=== PATIENT | female | born 1980 | race Caucasian/White ===

== ENCOUNTER 2016-04-03 02:46 | Inpatient (IN) | payer OTHER ==
[~2016-04-03] VITALS: Ht 167.6 cm; Wt 115.6 kg
[2016-04-03] VITALS (10 sets, daily range): BP systolic 118–139; BP diastolic 58–88; PULSE 66–103; RESP 14–25; O2SAT 87–100
[~2016-04-03 02:46] MED LIST: ASPI-973 PO; METH10TA4 PO; PROP10TA8 PO
--- NOTE | 2016-04-03 03:18 | ED.REPORT ---
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 The patient states that she awoke from sleep with the sensation of burning in her chest, like she needed a Jyothi. She reports associated radiation of her pain down both of her arms and up to her neck, with nausea, vomiting 1x, and shortness of breath. Patient admits to being anxious on arrival to the ED but denies diaphoresis. When her symptoms continued, the patient took an 81mg aspirin. Nursing Notes Stated Complaint: UPPER ABDOMINAL PAIN Chief Complaint: Female Abdominal Pain Nursing Notes Reviewed: Yes Allergies: Coded Allergies: amoxicillin (Verified Allergy, Unknown, 04/03/16) Scheduled Aspirin (Aspirin) 81 Mg Tablet 81 MG PO DAILY Methimazole (Methimazole) 10 Mg Tablet 30 MG PO DAILY Propranolol HCl (Propranolol HCl) 10 Mg Tablet 10 MG PO TID General Time Seen by MD: 03:10 Chief Complaint Chest pain Hx Obtained From: Patient Arrived By: Walk-in Sudden in Onset?: No Onset Occurred: 1 - 4 hours ago (1:30am) Symptom Duration: Since onset Location: : Abdomen: Chest Quality: Painful Radiation: : Arm left: Arm right Severity: Current: Moderate Severity: Maximum: Moderate Recent Healthcare: No recent doctor visit, No recent hospitalization Similar Sx Previous: No Past Medical History Past Medical History 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 Physical Exam Vital Signs Vital Signs Date Time Temp Pulse Resp B/P Pulse Ox O2 Delivery O2 Flow Rate FiO2 04/03/16 02:53 36.4 77 18 139/88 99 Room Air Initial VS: Reviewed Skin: Warm, Dry, No cyanosis Neurologic: Alert, Oriented, Nonfocal Psychiatric: Mood/affect normal, Behavior normal, Normal thought content General/Constitutional: Awake, Alert Behavior: Positive: Anxious Appearance / Presentation: Positive: Obese Head / Eyes: Atraumatic, Normocephalic, PERRL ENT: Airway patent, Mucous membranes moist Neck: Supple, Full range of motion Respiratory / Chest: Breath sounds NL, Breath sounds = bilat, No respiratory distress, No rales, No rhonchi, No wheezing Cardiovascular: Heart rate NL, Regular rhythm, No gallop, No murmurs, No rubs Abdomen: Soft, Non-tender, No guarding, No rebound Upper Extremities Upper Extremity / MS: No swelling, No edema Lower Extremity / Pelvis / MS: No swelling, No edema Interpretation & Diagnostics Lab Results Interpretation Result Diagram: 04/03/16 0329 04/03/16 0329 Test 04/03/16 03:29 White Blood Count 7.4th/mm3 (3.8-10.1) Red Blood Count 4.49mil/mm3 (3.90-5.20) Hemoglobin 13.4g/dL (12.0-15.6) Hematocrit 39.0% (35.0-46.0) Mean Corpuscular Volume 86.9fL (81-100) Mean Corpuscular Hemoglobin 29.8pg (27.0-35.0) Mean Corpuscular Hemoglobin Concent 34.4% (32.0-37.0) Red Cell Distribution Width 13.5% (12.3-15.4) Platelet Count 314bil/L (150-400) Neutrophils (%) (Auto) 55.4% (40-74) Lymphocytes (%) (Auto) 35.4% (14-46) Monocytes (%) (Auto) 9.0% (4-12) Eosinophils (%) (Auto) 0% (0-5) Basophils (%) (Auto) 0.1% (0-3) Prothrombin Time 9.7sec (8.1-12.5) Prothromb Time International Ratio 0.91ratio Activated Partial Thromboplast Time 25.6sec (22.8-33.0) D-Dimer < 0.5mg/L (<0.50) Sodium Level 141mEq/L (134-144) Potassium Level 3.6mEq/L (3.5-5.2) Chloride Level 105mEq/L (97-108) Carbon Dioxide Level 22mmol/L (18-29) Blood Urea Nitrogen 21mg/dL (6-20) Creatinine 0.70mg/dL (0.57-1.00) Estimat Glomerular Filtration Rate 134mL/min (>59) Glucose Level 133mg/dL (60-99) Calcium Level 9.3mg/dL (8.5-10.1) Magnesium Level 2.1mg/dL (1.6-2.6) Total Bilirubin 0.2mg/dL (0.0-1.2) Aspartate Amino Transf (AST/SGOT) 20U/L (0-50) Alanine Aminotransferase (ALT/SGPT) 31U/L (0-32) Alkaline Phosphatase 87U/L (25-150) Total Creatine Kinase 83U/L (21-215) Creatine Kinase MB 2.1ng/mL (0.0-5.3) Creatine Kinase MB % % (0.0-5.0) Troponin T 0.010ug/L (0.0-0.011) Total Protein 7.2g/dL (6.4-8.4) Albumin 4.3g/dL (3.4-5.0) Hold Vu Top Tube Received (Received) ECG Interpretation ECG Interpretation: Sinus rhythm, Rate 74 Incompleted RBBB Acute inferior GA changed from prior on 01/19/2016 Time: 03:13 Interpreted by: ED physician X-Ray Chest Interpretation Chest Xray Interpretation: Impression: No acute cardiopulmonary process. View: Portable Interpretation / Wet Read by: Wet read ED physician Re-Eval/Medical Decision Med Decision/Clinical Course 36-year-old prior stroke presents with upper epigastric lower chest pain radiating to her arms. Initial EKG shows an inferior wall GA, and caffeine was consulted immediately. Dr. Valle was here promptly to take her to the [facility] and she is transported now in critical condition. Source of Hx: Old records Time of Eval: 03:27 Re-Evaluation/Progress Note: Patient was informed that she is having an acute GA. She will need to go to the technical laboratory asst tonight and the manager med surg is on his way. Patient understands and agrees with this plan. All questions were addressed. Consultation : Referral / Consult Name: Kenna Duran MD Consulted With: Cardiology Call Returned at: 03:25 Pct: Will see patient, Agrees with eval, Agrees with plan, Requested technical laboratory asst Note: Spoke with Dr. Adam, cardiology, about the patient's EKG. He states to call the technical laboratory asst. Counseled Regarding: Diagnosis, Lab results, Need for admission Discharge & Departure Primary Impression: STEMI (ST elevation myocardial infarction) Involved coronary artery: unspecified coronary artery Qualified Code: I21.3 - ST elevation (STEMI) myocardial infarction of unspecified site Disposition: ADMITTED TO HOSPITAL Discharge Condition All VS Reviewed: Yes Condition: Critical Crit Care Except Billable Proc Time Spent: 30-74 minutes (thirty minutes) Services Performed: Patient management by me, Time spent at bedside, Reviewing test results, Reviewing imaging, Discussing patient care, Documentation in record, Time with fam/surrogate Scribe Attestation Portions of this note were transcribed by Margaret Ruiz. I, Dr. Delatorre personally performed the history, physical exam and medical decision-making; I reviewed and confirmed the accuracy of the information in the transcribed note. Signed by: Mark Sow, 04/03/2016 0426 Garfield Delatorre MD Apr 03, 2016 03:18 Margaret Ruiz Apr 03, 2016 03:34
[2016-04-03] MEDS ORDERED: Ondansetron 2 mg/mL 2 mL Inj ONE ×2 (03:30→04:09)
[2016-04-03] MEDS ORDERED: Heparin 5,000 Unit/mL Inj ONE (03:31)
[2016-04-03] MEDS ORDERED: Nitroglycerin 50,000 mcg/250 mL D5W Premix IV ONE ×2 (03:31→03:46)
[2016-04-03 03:43] LABS: BASOPHILS % (AUTO) 0.1 % (0-3); EOSINOPHILS % (AUTO) 0 % (0-5); Mean Corpuscular Hemoglobin 29.8 pg (27.0-35.0); Mean Corpuscular Volume 86.9 fL (81-100); NEUTROPHILS % (AUTO) 55.4 % (40-74); Platelet Count 314 bil/L (150-400)
[2016-04-03] MEDS ORDERED: 0.9% Sodium Chloride 1,000 ML ONE (03:46)
[2016-04-03] MEDS ORDERED: Heparin 1,000 Unit/mL 10 mL Inj ONE (03:46)
[2016-04-03] MEDS ORDERED: Heparin 1,000 Units/500 mL NS Premix IV ONE (03:46)
[2016-04-03] MEDS ORDERED: Heparin 5,000 Units/500 mL NS Premix IV ONE (03:46)
[2016-04-03] MEDS ORDERED: Heparin 25,000 Unit/500 mL 0.45% NS Premix IV ONE (03:54)
[2016-04-03] MEDS ORDERED: Ondansetron 8 mg ODT Tablet PO ONE (03:55)
[2016-04-03 03:57] LABS: INR 0.91 ratio
[2016-04-03] MEDS ORDERED: fentaNYL-PF 50 mCg/mL 2 mL Inj ONE ×4 (04:08→05:23)
[2016-04-03 04:11] LABS: TROPONIN T 0.01 ug/L (0.0-0.011)
--- NOTE | 2016-04-03 04:53 | HP ---
[address] [address] HISTORY AND PHYSICAL PATIENT: STEVE HERNANDEZ : 1980 MR#: [id number] ADMIT: 04/03/2016 JOB ID: [id number] CORRECTED REPORT DATE OF ADMISSION: 04/03/2016 CHIEF COMPLAINT: Chest discomfort. HISTORY: The patient is a 36 years old lady with history of obesity and prior smoking. She was in her usual state of health until tonight when she woke up with chest discomfort around 1:30 a.m. She described as heartburn that radiated to her upper neck and her left arm. She rated about 7/10. She initially thought that it was from her pancreas since she has history of pancreatitis in the past. The patient arrived in the emergency department at 2:45 a.m. EKG at 3:[address]-segment elevation. STEMI protocol was activated. PAST MEDICAL HISTORY: 1. History of cerebrovascular accident in January 2016 with expressive aphasia, right upper extremity weakness and facial drop, treated with tPA. 2. Graves disease. 3. Preeclampsia. 4. Hypertension. 5. Pancreatitis, thought to be due to gallstone. PAST SURGICAL HISTORY: 1. Cholecystectomy. 2. Right knee meniscus repair. 3. Tonsillectomy. CURRENT MEDICATIONS: 1. Aspirin 81 mg daily. 2. Metoprolol succinate 12.5 mg daily. 3. She stopped taking methimazole 1 week ago. ALLERGIES: AMOXICILLIN causes rash. SOCIAL HISTORY: She quit smoking two years ago. She used to smoke off and on for 17 years. She denies alcohol. No drugs. FAMILY HISTORY: Her mother is adopted. Father has hypertension. REVIEW OF SYSTEMS: Unobtainable due to urgency of clinical situation. PHYSICAL EXAMINATION: Reveals an anxious, obese lady appearing in no acute distress. Temperature is 36.1. Blood pressure is 110/46. Pulse 93. Skin is warm and dry. Head and face have normal configuration. Anicteric sclerae. Moist mucosa. Neck supple. No jugular venous distention or carotid bruits. Chest: Normal expansion. Lungs are clear to auscultation. Heart: The first and second heart sounds normal. No gallop or murmur. Abdomen: Obese, nontender and without hepatosplenomegaly. Back: No CVA tenderness. Extremities: No clubbing, cyanosis or edema. Neurologic: Grossly intact. IMPRESSION: 1. Acute inferoposterior myocardial infarction. 2. History of cerebrovascular accident, treated with tPA in January 2016. 3. Hypertension. 4. Graves disease. 5. Obesity. 6. History of smoking. PLAN: The patient will undergo emergent coronary angiogram and possible percutaneous coronary intervention. The risks and benefits of procedure have been explained to the patient. She understands and agrees to proceed with the procedure. Corrected by KEYUR 06/28/2016 at 8:21am DOS. LANDEROS
[2016-04-03] MEDS ORDERED: Protamine Sulfate 10 mg/mL 5 mL Inj ONE (05:14)
[2016-04-03] MEDS ORDERED: 0.9% Sodium Chloride 1,000 ML IV SCH (05:57)
[2016-04-03] MEDS ORDERED: Alum-Mag Hydrox-Simeth 30 mL Suspension PO PRN (06:00)
[2016-04-03] MEDS ORDERED: Ondansetron 2 mg/mL 2 mL Inj IVPUSH PRN (06:00)
[2016-04-03] MEDS ORDERED: Polyethylene Glycol (PEG) 17 Gm Powder PO PRN (06:00)
--- NOTE | 2016-04-03 06:52 | NUR ---
laboratory animal facility supervisor to ccu room 2019, pt received from laboratory animal facility supervisor to ccu room 2020 at 0610, tele- sr, pt denies cp, hr 70's, bp stable, afebrile, pt denies n/v denies sob, pedal pulses present, right groin with large hematoma that developed post cath in laboratory animal facility supervisor, outlined, no changes noted, no bleeding from cath site, post cath checks done per protocol and noted on post cath flow sheet, pt c/o needing to void, attempted to place f/c, unable per 2 rns, pt states she will wait to void, reported to day shift rn, pt teary eyed and appears overwhelmed with this morning's events, see post cath flow sheet and ht/wt/vs charting, ivf infusing per orders, report to day shift rn--aware that admit and orders need to be done,
[2016-04-03 07:48] LABS: Creatine Kinase 83 U/L (21-215)
--- NOTE | 2016-04-03 08:54 | DRSVH ---
PROCEDURE: X-RAY CHEST ONE VIEW, PORTABLE ([id number]) INDICATIONS: STEMI, ABDOMINAL PAIN TECHNIQUE: One view of the chest was acquired. COMPARISON: None. FINDINGS: Surgical changes and devices: None. Lungs and pleura: No pleural effusions or pneumothorax. Lungs are clear. Mediastinum: Mediastinal contours appear normal. Heart size is normal. Bones and chest wall: No suspicious bony lesions. Overlying soft tissues appear unremarkable. IMPRESSION: No acute cardiopulmonary disease. Dictated by: Georges FLORES Interpreted: Valente Montano MD on 04/03/2016 at 8:53 Transcribed by: MARY on 04/03/2016 at 8:53 Approved by: Andi Montano M.D. on 04/03/2016 at 9:28
--- NOTE | 2016-04-03 09:54 | CS94 ---
[address] [address] DIAGNOSTIC CARDIAC CATHETERIZATION PATIENT: STEVE HERNANDEZ : 1980 MR#: [id number] ADMIT: 04/03/2016 JOB ID: [id number] SERVICE DATE: 04/03/2016 PATIENT PROFILE: The patient is a 36 years old woman with a history of stroke last year. She presented with acute inferoposterior myocardial infarction. PROCEDURE: 1. Retrograde left heart catheterization. 2. Selective coronary angiography. 3. Left ventricular angiogram. 4. Intravascular ultrasound of the proximal right coronary artery. VASCULAR CLOSURE DEVICE: None. COMPLICATIONS: Moderate-sized right groin hematoma. METHOD: Retrograde left heart catheterization was performed from the right groin under 1% lidocaine local anesthesia using a 6-[place] sheath. Selective coronary angiogram was performed in multiple projections, including cranial and caudal angulations with hand injected contrast via JL-4 and 3DRC catheters. There appears to be ostial right coronary artery lesion. The catheter was then changed to a 4-[place] IM catheter. However, the ostium right coronary artery lesion still persists. Heparin 8,000 units were given. A 6-[place] 3DRC guide was advanced to the right coronary ostium. A Runthrough wire was placed inside the right coronary artery. Nitroglycerin 200 mcg was given intracoronary. The guide was backed out of the coronary ostium. An angiogram was performed and it showed improvement of the right coronary artery lesion. An [place] IVUS catheter was then performed in the right proximal coronary artery lesion. The procedure was terminated. A 6-[place] angulated pigtail catheter was advanced to the left ventricle and left ventricular angiogram was performed in the 30 degree GUTIERREZ view by injecting contrast at the rate of 12 cc/second for 3 seconds. This catheter was withdrawn. Right femoral angiogram was performed. Following sheath removal, an attempt to deploy an Angio-Seal closure device was unsuccessful. The patient developed a moderate-sized right groin hematoma. She was transferred to intensive care unit in stable condition. TOTAL CONTRAST USED: 160 cc. FLUOROSCOPY TIME: 8.9 minutes. RESULTS: 1. Selective coronary angiography: a. Left main coronary artery is normal. b. The left anterior descending artery does not reach the apex and has minimal 10% stenosis. c. The circumflex artery is large and normal. The major obtuse marginal branch reaches the apex and appears normal. d. The large and dominant right coronary artery is normal. There is catheter-induced spasm at the right coronary ostium. 2. An intravascular ultrasound of the proximal right coronary artery showed there is minimal atherosclerotic plaque with diameter of 4.2 x 4.6 mm and cross-sectional area of 16.2 mm2. 3. Left ventricular angiogram demonstrates normal left ventricular systolic function (visually estimated ejection fraction 65%). There is no wall motion abnormality. There is no mitral regurgitation. 4. There is no gradient across the aortic valve on catheter withdrawal. 5. Aortic pressure is 162/91 mmHg. Left ventricular pressure is 168/7 mmHg. 6. Left ventricular end-diastolic pressure is 26 mmHg. CONCLUSION: 1. Minimal coronary artery disease. 2. Normal left ventricular systolic function. 3. LVEDP is [address]-segment change is due to coronary artery spasm. MTDD
[2016-04-03 13:46] LABS: Magnesium 1.8 mg/dL (1.6-2.6)
[2016-04-03 13:50] LABS: TROPONIN T 0.857 ug/L (0.0-0.011)
[2016-04-03] MEDS ORDERED: METO25TA99 PO (15:37)
--- NOTE | 2016-04-03 16:44 | NUR ---
R Groin Hematoma/Activity: P: R groin pain 7/10 r/t hematoma post heart cath I: Tylenol 650mg PO administered. E: pt reported 7/10 pain on tylenol reassessment this morning. MD was notified. Ordered Morphine 2mg IV Q2 hours PRN for pain. Morphine 2mg IVP was administered and pt reported 4/10 pain on reassessment. R groin site is unchanged from this morning, mod amounts of bruising noted, site is tender to touch. Pressure dressing is C/D/I. Dorsalis pedis pulses palpable. VSS. Dr Welch assessed site at 1600 and stated pt is able to be off bedrest. Pt is current tolerating sitting up in chair without report of CP, SOB, palpitations.
[2016-04-03 19:33] LABS: TROPONIN T 1.16 ug/L (0.0-0.011)
[2016-04-03] MEDS: HYDROcodone-APAP 5-325 mg Tablet PO PRN (21:38)
--- NOTE | 2016-04-04 00:26 | NUR ---
transfer: received transfer patient at 0010, pt. c/o back pain, she received one norco 2 hrs ago, pt. has large hematoma right groin site, extending into groin area.
[2016-04-04 04:56] VITALS: BP 104/68; PULSE 67; RESP 16; O2SAT 98
[2016-04-04 07:28] LABS: BASOPHILS % (AUTO) 0.1 % (0-3); EOSINOPHILS % (AUTO) 0 % (0-5); MONOCYTES % (AUTO) 5.9 % (4-12); Mean Corpuscular Hemoglobin 29.7 pg (27.0-35.0); Mean Corpuscular Volume 88.2 fL (81-100); NEUTROPHILS % (AUTO) 64.9 % (40-74); Platelet Count 285 bil/L (150-400)
[2016-04-04] MEDS: HYDROcodone-APAP 5-325 mg Tablet PO PRN ×3 (07:44→16:05)
[2016-04-04 08:00] VITALS: BP 111/76; PULSE 70; RESP 20; O2SAT 97
--- NOTE | 2016-04-04 08:45 | NUR ---
Social Work: Screening Data: Pt is a 36 y/o female admitted for stemi. Pt's PCP is Dr Gilliam, pt's insurance is [employer]. Readmit score is 3. EMR reviewed. No d/c planning needs anticipated at this time. [facility] will continue to follow if needs arise. Assessment: Pt who is independent at baseline. Plan: Pt will d/c home via POV when medically stable. No d/c planning needs anticipated at this time. [facility] will continue to follow if needs arise. AFIA Trejo
--- NOTE | 2016-04-04 11:41 | DIS ---
[address] [address] DISCHARGE SUMMARY PATIENT: STEVE HERNANDEZ : 1980 MR#: [id number] ADMIT: 04/03/2016 JOB ID: [id number] DIS: 04/04/2016 CORRECTED REPORT: ADMITTING DIAGNOSIS: Acute inferoposterior myocardial infarction. DISCHARGE DIAGNOSES: 1. Acute inferoposterior myocardial infarction. 2. Coronary spasm. SECONDARY DIAGNOSES: 1. History of cerebrovascular accident, treated with tPA in January 2016. 2. Hypertension. 3. Hypercholesterolemia. 4. Morbid obesity with a body mass index of 41.1 kg/m2. 5. Prediabetes. 6. Possible obstructive sleep apnea. 7. Graves disease. 8. History of smoking. PROCEDURE: 1. Retrograde left heart catheterization. 2. Selective coronary angiography. 3. Left ventricular angiogram. 4. Intravascular ultrasound of the proximal right coronary artery. COMPLICATION: Large right groin hematoma. HISTORY: Please see detailed history in the admission H and P. The patient is a 36 years old lady with morbid obesity and prior smoking. She was in her usual state of health until April 03, 2016, when she woke up from sleep with severe heartburn that radiated to her upper neck and her left arm. She rated it about 7/10. EKG showed inferior ST-segment elevation with anterior ST depression. STEMI protocol was activated. The patient underwent emergent coronary angiogram, which demonstrated minimal coronary artery disease. Normal left ventricular systolic function. Left ventricular end-diastolic was 26 mmHg. She had catheter-induced spasm of the ostial right coronary artery, which was reversed with nitroglycerin. Blood tests showed cholesterol 185, triglycerides 99, HDL 56, LDL 109. Hemoglobin A1c 5.7. Her CK peaked at 557, with troponin T peaking at 1.17. She developed a large right groin hematoma after the procedure. The patient was discharged from the hospital on the following day in good condition. She will follow with [facility] in one week to check on her groin. The patient will follow up with Dr. Coleman in three months with BMP and lipid profile. She was referred to see a sleep doctor for further evaluation of obstructive sleep apnea. DISCHARGE MEDICATIONS: 1. Aspirin 81 mg daily. 2. Metoprolol succinate 25 mg daily (dose decreased). 3. Amlodipine 2.5 mg daily (new). 4. Atorvastatin 20 mg (new). 5. Hydrocodone 5/325, 1 tablet q.4-6 h. p.r.n. for 30. Corrected by KEYUR 06/20/16 at 9:24am MTDD
--- NOTE | 2016-04-04 12:00 | NUR ---
C/O shakiness/pain/mov Called to patient room as pt c/o shakiness and elevated HR. Hands with visable, [employer] reports HR 94 (80-110 range). Estelline given for pain at hematoma site. At 1100 pt able to ambulate 2 full loops of MOC. Reported next time up with pain. Will ambulate after lunch again. Addendum: 04/04/16 at 1230 by EDUARDO MELCHOR RN Reports pain in the right shoulder area, posterior. Not new, up to rib cage.
--- NOTE | 2016-04-04 14:43 | DRSVH ---
[facility] [address] [place] [address] Echocardiogram Report Name: STEVE HERNANDEZ MStudy Date: 04/04/2016 Height: 66 in Hospital Exam Location: [facility] Weight: 255 lb Gender: Female BSA: 2. 2 m2 : 1980 Age: 36 yrs BP: 104 /68 mmHg Reason For Study: POST-CATH Ordering Physician: Performed By: Aldo Torres Referring Physician: XENA STARKEY Interpretation Summary The ejection fraction is estimated to be 60-65%. There is no significant valvular heart disease. Procedure: A two-dimensional transthoracic echocardiogram with color flow and Doppler was performed. The study quality was technically adequate. Comparison is made with the echocardiogram of 01/20/16. The patient was in normal sinus rhythm during the exam. Left Ventricle: The left ventricle is normal in size, wall thickness, and systolic function without any focal wall motion abnormalities. The ejection fraction is estimated to be 60-65%. There are no obvious focal wall motion abnormalities noted but poor endocardial definition reduces the sensitivity for the detection of such. Assessment of diastolic parameters indicates normal left ventricular diastolic function and normal filling pressures. Right Ventricle: The right ventricle is normal in size, thickness and function. Atria: The left atrial size is normal. The right atrium grossly appears normal in size. The interatrial septum is intact with no evidence for an atrial septal defect. Mitral Valve: The mitral valve is normal. There is trace mitral regurgitation. Aortic Valve: The aortic valve is normal in structure and function. No aortic regurgitation is present. Tricuspid Valve: The tricuspid valve is normal. Pulmonary artery pressures cannot be estimated because of the lack of a measurable TR jet velocity. Pulmonic Valve: The pulmonic valve is not well seen, but is grossly normal. There is a trace or physiologic amount of pulmonic regurgitation. Great Vessels: The aortic root is normal size. The dimensions of the ascending aorta are normal. The pulmonary artery is normal size. The inferior vena cava appeared normal. Pericardium/ Pleura There is no pericardial effusion. There is no pleural effusion. MMode/2D Measurements & Calculations LVIDd: 4.6 cm RA long axis LVOT diam: 2.1 cm LVIDs: 3.2 cm LA A2 area: 17.8 cm Ao root diam FS: 31.8 % LA A4 area: 16.7 cm RA area EPSS: 0.24 cm LA length (vol) asc Aorta Diam IVSd: 0.96 cm : 11.8 cm LVPWd: 0.85 cm LA vol: 61.5 ml RA vol Ao Arch Diam (Prox LA vol index : 28.6 ml Trans): 2.6 cm RA : 27.8 ml/m2 : 12.9 mm2 LV purdy. diameter/BSA LV sys. diameter/BSA (cm/m^2): 2.1 (cm/m^2): 1.4 Doppler Measurements & Calculations Ao V2 max MV E max shady MV E/A: 1.3 PA V2 max : 154.5 cm/sec : 87.3 cm/sec Med Peak E' Shady : 127.7 cm/sec Ao max P.6 mmHg MV A max shady PA mean PG Ao mean P.1 mmHg : 66.1 cm/sec E/E' med: 9.5 : 3.8 mmHg LVOT Max Shady Lat Peak E' Shady : 103.4 cm/sec GALEN(I,D): 2.4 cm E/E' lat: 7.0 sev ratio: 0.67 E/e' average: 8.3 MV dec time: 0.19 sec Ao V2 mean LV V1 max PG PA V2 mean : 107.1 cm/sec : 93.7 cm/sec Ao V2 VTI: 26.7 cmLV V1 VTI: 17.8 cm PA pr(Accel) : 18.3 mmHg GALEN(V,D): 2.4 cm2 GALEN indexed to BSA (cm^2/m^2): 1.1 Electronically signed by: Brennan Ruiz on Reading Physician:04/04/2016 02:43 PM
--- NOTE | 2016-04-04 14:47 | NUR ---
Paged MD Call placed MD re discharge. Pt concern over growing hematoma and young child at home. Enc placing pillow over area as a splint/guard. MD confirmed ok to discharge.
[2016-04-04 16:07] VITALS: PULSE 98
--- NOTE | 2016-04-04 17:36 | NUR ---
Discharge Reviewed DC instructions with patient and . Answered all questions. All belongings taken Taken out in w/ch to home in private auto to home with family.
[2016-04-05] MEDS ORDERED: PROP10TA8 PO (01:09)
== END 2016-04-04 16:30 | disposition home or self-care (01) | DRG 190 ==
LOC: SED 02:46 → CCU 03:49 → PCC 16:44 → MOC 04-04 00:15
PROVIDERS: ADMIT Internal Medicine Interventional Cardiology; ATTEND Internal Medicine Interventional Cardiology
PROC: 4A023N7 Measurement of Cardiac Sampling and Pressure, Left Heart, Percutaneous Approach (ICD-10-PCS; principal; 2016-04-03)
PROC: B2111ZZ Fluoroscopy of Multiple Coronary Arteries using Low Osmolar Contrast (ICD-10-PCS; 2016-04-03)
PROC: B2151ZZ Fluoroscopy of Left Heart using Low Osmolar Contrast (ICD-10-PCS; 2016-04-03)
DX: I21.11 ST elevation (STEMI) myocardial infarction involving right coronary artery (principal); I69.351 Hemiplegia and hemiparesis following cerebral infarction affecting right dominant side; Z68.41 Body mass index [BMI] 40.0-44.9, adult; E05.00 Thyrotoxicosis with diffuse goiter without thyrotoxic crisis or storm; K21.9 Gastro-esophageal reflux disease without esophagitis; E66.01 Morbid (severe) obesity due to excess calories; I10 Essential (primary) hypertension; E78.00 Pure hypercholesterolemia, unspecified; F41.9 Anxiety disorder, unspecified; Z79.82 Long term (current) use of aspirin; Z87.891 Personal history of nicotine dependence

== ENCOUNTER 2016-04-04 22:49 | Emergency (ER) | payer OTHER ==
[~2016-04-04] VITALS: Ht 167.6 cm; Wt 100.0 kg
[~2016-04-04 22:49] MED LIST changes: +METO25TA99 PO; -PROP10TA8 PO
[2016-04-04 23:00] VITALS: BP 144/65; PULSE 122; RESP 18; O2SAT 98
--- NOTE | 2016-04-04 23:01 | ED.REPORT ---
HPI-General Illness Date of Service Apr 04, 2016 ED Provider: Garfield Delatorre MD Patient is a 36 year old female with a history Grave's Disease, hyperthyroidism , recent CVA s/p tPA, and coronary artery disease with recent STEMI on Apr 03 who presents to the ED via EMS after she developed a racing heart rate at 9pm this evening. Patient denies feeling dizzy and having some tingling of her face. Patient believes anxiety caused her symptoms, as she has experienced this previously for brief episodes of time. The patient denies chest pain, nausea, or vomiting. Patient reports taking Lipitor for the first time earlier today and is concerned this caused her symptoms. She also took her hyperthyroid medication and hydrocodone. The patient was discharged from [facility] earlier today, following her recent STEMI. Nursing Notes Stated Complaint: RAPID HEART RATE Chief Complaint: General Complaint Nursing Notes Reviewed: Yes Allergies: Coded Allergies: amoxicillin (Verified Allergy, Unknown, 04/04/16) Scheduled Aspirin (Aspirin) 81 Mg Tablet 81 MG PO DAILY Methimazole (Methimazole) 10 Mg Tablet 30 MG PO DAILY Metoprolol Succinate ER (Metoprolol Succinate ER) 25 Mg Tab.er.24h 25 MG PO DAILY Propranolol HCl (Propranolol HCl) 10 Mg Tablet 10 MG PO TID General Time Seen by MD: 23:00 Chief Complaint Other (racing heart rate) Hx Obtained From: Patient Arrived By: Ambulance Sudden in Onset?: No Onset Occurred: 1 - 4 hours ago Symptom Duration: Since onset Severity: Current: No pain currently Severity: Maximum: No pain Recent Healthcare: Recent hospitalization, Previous surgery Similar Sx Previous: No Past Medical History Past Medical History - 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, s/p tPA - Inferoposterior myocardial infarction 04/03/2016 - Minimal coronary artery disease (per heart catheterization on 04/03/2016, no intervention) - Grave's disease - Hyperthyroidism Reports: Asthma, GERD Reports: Migraines Past Surgical History L knee arthoscopy cardiac catheterization on Apr 03 2016 Reports: Cholecystectomy, Tonsillectomy Smoking History Former Smoker Social History Other Social History: Good social support, , Lives with children, Local resident Ambulatory Status Independent Review of Systems Full Review of Systems Respiratory: Denies: Shortness of breath Cardiovascular: Reports: Palpitations, Denies: Chest pain GI: Denies: Nausea, Vomiting Complete sys rev & neg: except as marked. Physical Exam Vital Signs Vital Signs Date Time Temp Pulse Resp B/P Pulse Ox O2 Delivery O2 Flow Rate FiO2 04/05/16 01:49 91 20 127/63 97 Room Air 04/05/16 00:18 94 18 123/71 99 Room Air 04/04/16 23:00 36.7 122 18 144/65 98 Room Air Initial VS: Reviewed Head / Eyes: Atraumatic, Normocephalic, PERRL ENT: Conjunctiva normal, No scleral icterus Neck: Supple, Full range of motion Abdomen / GI: Soft, Non-tender, No guarding, No rebound Extremities: Vascular intact, Neuro intact, No swelling Skin: Warm, Dry, No cyanosis Neurologic: Alert, Oriented, Nonfocal Psychiatric: Mood/affect normal, Behavior normal, Normal thought content General/Constitutional: Awake, Alert Behavior: Positive: Anxious Appearance / Presentation: Positive: Obese, morbidly Respiratory / Chest: Breath sounds NL, Breath sounds = bilat, No respiratory distress, No rales, No rhonchi, No wheezing Cardiovascular: Regular rhythm, No gallop, No murmurs, No rubs Heart Rate / Rhythm: Positive: Tachycardia (mild) Lower Extremity / Pelvis / MS: No swelling, No edema large hematoma right groin, from prior catheterization site Interpretation & Diagnostics Lab Results Interpretation Result Diagram: 04/04/16224904/04/162249 Test 04/04/16 22:50 White Blood Count 10.2th/mm3 (3.8-10.1) Red Blood Count 4.10mil/mm3 (3.90-5.20) Hemoglobin 12.2g/dL (12.0-15.6) Hematocrit 35.9% (35.0-46.0) Mean Corpuscular Volume 87.6fL (81-100) Mean Corpuscular Hemoglobin 29.8pg (27.0-35.0) Mean Corpuscular Hemoglobin Concent 34.0% (32.0-37.0) Red Cell Distribution Width 13.3% (12.3-15.4) Platelet Count 293bil/L (150-400) Neutrophils (%) (Auto) 56.2% (40-74) Lymphocytes (%) (Auto) 35.5% (14-46) Monocytes (%) (Auto) 7.9% (4-12) Eosinophils (%) (Auto) 0.1% (0-5) Basophils (%) (Auto) 0.1% (0-3) Sodium Level 138mEq/L (134-144) Potassium Level 3.4mEq/L (3.5-5.2) Chloride Level 100mEq/L (97-108) Carbon Dioxide Level 21mmol/L (18-29) Blood Urea Nitrogen 12mg/dL (6-20) Creatinine 0.67mg/dL (0.57-1.00) Estimat Glomerular Filtration Rate 141mL/min (>59) Glucose Level 118mg/dL (60-99) Calcium Level 9.1mg/dL (8.5-10.1) Magnesium Level 1.8mg/dL (1.6-2.6) Total Bilirubin 0.4mg/dL (0.0-1.2) Aspartate Amino Transf (AST/SGOT) 32U/L (0-50) Alanine Aminotransferase (ALT/SGPT) 28U/L (0-32) Alkaline Phosphatase 77U/L (25-150) Troponin T 0.563ug/L (0.0-0.011) Total Protein 7.1g/dL (6.4-8.4) Albumin 4.2g/dL (3.4-5.0) ECG Interpretation ECG Interpretation: Sinus tachycardia, Rate 114 Right bundle branch block Time: 22:55 Interpreted by: ED physician Normal ECG Interpretation: No change from prior ECGs (04/04/2016) X-Ray Chest Interpretation Chest Xray Interpretation: Impression: No acute cardiopulmonary process. View: Portable Interpretation / Wet Read by: Wet read ED physician Re-Eval/Medical Decision Med Decision/Clinical Course 36-year-old prior stroke and just discharged today after intervention for an RCA lesion STEMI. She was home and experienced some rapid heart rate in the 120s that is still persistent here. His sinus rhythm. Her troponin is trending downward from her recent [place]. X-rays unremarkable. Remainder reexamined [place] unremarkable. No indication of anything more than anxiety and tachycardia. She is not beta blocked, though she has metoprolol prescribed. She states metoprolol has not worked for her in the past, and that she did better on indomethacin. She has a long history without, having had Graves' disease and being on methimazole. She was restarted on 10 mg 3 times a day of propranolol, and will follow up with her PCP. Discontinue current metoprolol dose. Source of Hx: Old records Time of Eval: 01:02 Patient Status: Condition improved Re-Evaluation/Progress Note: Rechecked the patient, who was informed that nothing acute was found on her work-up. Patient understands and agrees with the plan to be discharged home. Discharge instructions and follow-up discussed. All questions were addressed. Return to the ED warnings given. Counseled Regarding: Diagnosis, Lab results, Need for follow-up, When/why to return to ED Discharge & Departure Primary Impression: Sinus tachycardia Additional Impression: Heart palpitations Disposition: Home Discharge Condition All VS Reviewed: Yes Condition: Stable Patient Instructions: Palpitations (ED), Propranolol (By mouth) Additional Instructions: Stop your metoprolol and resume propranolol three times daily. Follow-up with your doctor in the office Return if any immediate issues Referrals: Neris Coleman MD (PCP) Scribe Attestation Portions of this note were transcribed by Margaret Ruiz. I, Dr. Delatorre personally performed the history, physical exam and medical decision-making; I reviewed and confirmed the accuracy of the information in the transcribed note. Signed by: Mark Sow, 04/04/2016 0143 copies to: Neris Coleman MD, Christopher W MD Apr 04, 2016 23:01 Margaret Ruiz Apr 04, 2016 23:12
[2016-04-04 23:09] LABS: BASOPHILS % (AUTO) 0.1 % (0-3); EOSINOPHILS % (AUTO) 0.1 % (0-5); MONOCYTES % (AUTO) 7.9 % (4-12); Mean Corpuscular Hemoglobin 29.8 pg (27.0-35.0); Mean Corpuscular Volume 87.6 fL (81-100); NEUTROPHILS % (AUTO) 56.2 % (40-74); Platelet Count 293 bil/L (150-400)
[2016-04-04] MEDS ORDERED: MeTOProlol 1 mg/mL 5 mL Inj IVPUSH ONE (23:10)
[2016-04-05 00:09] LABS: Magnesium 1.8 mg/dL (1.6-2.6)
[2016-04-05 00:10] LABS: TROPONIN T 0.563 ug/L (0.0-0.011)
[2016-04-05 00:18] VITALS: BP 123/71; PULSE 94; RESP 18; O2SAT 99
[2016-04-05] MEDS ORDERED: PROP10TA8 PO (01:09)
[2016-04-05 01:49] VITALS: BP 127/63; PULSE 91; RESP 20; O2SAT 97
--- NOTE | 2016-04-05 09:51 | DRSVH ---
PROCEDURE: X-RAY CHEST ONE VIEW, PORTABLE ([id number]) INDICATIONS: heart rapid beating TECHNIQUE: One view of the chest was acquired. COMPARISON: None. FINDINGS: Surgical changes and devices: None. Lungs and pleura: No pleural effusions or pneumothorax. Lungs are clear. Mediastinum: Mediastinal contours appear normal. Heart size is normal. Bones and chest wall: No suspicious bony lesions. Overlying soft tissues appear unremarkable. IMPRESSION: No acute cardiopulmonary disease. Dictated by: Georges Gomes [facility] Interpreted: Clemencia Borges MD on 04/05/2016 at 9:50 Transcribed by: ANA on 04/05/2016 at 9:50 Approved by: Clemencia Borges MD, PhD on 04/05/2016 at 15:50
== END 2016-04-05 01:49 | disposition home or self-care (01) ==
LOC: SED 22:49
DX: R00.0 Tachycardia, unspecified (principal); R00.2 Palpitations; I25.10 Atherosclerotic heart disease of native coronary artery without angina pectoris; I25.2 Old myocardial infarction; J45.909 Unspecified asthma, uncomplicated; K21.9 Gastro-esophageal reflux disease without esophagitis; E05.90 Thyrotoxicosis, unspecified without thyrotoxic crisis or storm; Z86.73 Personal history of transient ischemic attack (TIA), and cerebral infarction without residual deficits; Z95.5 Presence of coronary angioplasty implant and graft; Z87.891 Personal history of nicotine dependence; Z79.82 Long term (current) use of aspirin; Z88.1 Allergy status to other antibiotic agents

== ENCOUNTER 2016-07-14 15:37 | Emergency (ER) | payer OTHER ==
[~2016-07-14] VITALS: Ht 167.6 cm; Wt 117.7 kg
[~2016-07-14 15:37] MED LIST changes: +PROP10TA8 PO
[2016-07-14 15:44] VITALS: BP 149/89; PULSE 91; RESP 18; O2SAT 99
--- NOTE | 2016-07-14 16:24 | ED.REPORT ---
HPI-General Illness Date of Service July 14, 2016 ED Provider: Giacomo Montes MD Patient is a 36 year old female with a history Grave's Disease, hyperthyroidism , CVA s/p tPA, and coronary artery disease with recent STEMI on Apr 03 who presents to the ED c/o extreme fatigue, nausea, pain in the left flank area for 1 week. The patient denies chills, fever, chest pain, nausea, or vomiting, diarrhea, dysuria. She report h/o nephrolithiasis. Nursing Notes Stated Complaint: LEFT SIDE PAIN,BACK PAIN,ABD PAIN,FATIGUE Chief Complaint: General Complaint Nursing Notes Reviewed: Yes Allergies: Coded Allergies: amoxicillin (Verified Allergy, Unknown, 04/04/16) Scheduled Aspirin (Aspirin) 81 Mg Tablet 81 MG PO DAILY Methimazole (Methimazole) 10 Mg Tablet 30 MG PO DAILY Metoprolol Succinate ER (Metoprolol Succinate ER) 25 Mg Tab.er.24h 25 MG PO DAILY Propranolol HCl (Propranolol HCl) 10 Mg Tablet 10 MG PO TID Scheduled PRN Acetaminophen (Acetaminophen) 325 Mg Tablet 325 MG PO Q4H PRN PRN For Fever Cyclobenzaprine (Cyclobenzaprine) 5 Mg Tablet 5 MG PO HS PRN PRN Spasm Ondansetron (Zofran) 4 Mg Tablet 4 MG PO Q4H PRN PRN For Nausea General Time Seen by MD: 15:57 Chief Complaint Back pain (left flank area), Weakness Hx Obtained From: Patient Arrived By: Walk-in Onset Occurred: 1 week ago Symptom Duration: Since onset Location: : Back (left flank area) Quality: Aching Radiation: : Abdomen (LLQ) Severity: Current: Mild Severity: Maximum: Mild Past Medical History Past Medical History - 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, s/p tPA - Inferoposterior myocardial infarction 04/03/2016 - Minimal coronary artery disease (per heart catheterization on 04/03/2016, no intervention) - Grave's disease - Hyperthyroidism Reports: Asthma, GERD Reports: Migraines Past Surgical History L knee arthoscopy cardiac catheterization on Apr 03 2016 Reports: Cholecystectomy, Tonsillectomy Smoking History Former Smoker Social History Other Social History: Good social support, , Lives with children, Local resident Ambulatory Status Independent Review of Systems Full Review of Systems Constitutional: Reports: Weakness - generalized, Denies: Chills, Fatigue, Fever, Lethargy, Malaise, Recent wt loss Respiratory: Denies: Shortness of breath Cardiovascular: Denies: Chest pain, Edema, Syncope GI: Reports: Abdominal pain (left sided), Nausea, Denies: Constipation, Diarrhea, Vomiting Female: Reports: Flank pain (left), Denies: Dysuria Hematologic: Denies Bleeding, Denies Bruising Skin: Denies Rash Neurologic: Denies: Bowel dysfunction, Dizziness, Focal weakness Physical Exam Vital Signs Vital Signs Date Time Temp Pulse Resp B/P Pulse Ox O2 Delivery O2 Flow Rate FiO2 07/14/16 18:25 86 16 118/82 97 Room Air 07/14/16 16:51 87 129/86 07/14/16 16:51 108 122/89 07/14/16 16:51 90 136/85 07/14/16 15:44 37.2 91 18 149/89 99 Room Air Initial VS: Reviewed, Vital signs normal General/Constitutional: Well-developed, Well-nourished Head / Eyes: Atraumatic, Normocephalic ENT: Mucous membranes moist, Conjunctiva normal, No scleral icterus Neck: Supple, Non-tender, Full range of motion Respiratory: Breath sounds normal, Clear to auscultation, No respiratory distress Cardiovascular: Regular rate & rhythm Extremities: Vascular intact, Neuro intact Skin: Warm, Dry, No cyanosis Neurologic: Oriented, Nonfocal Psychiatric: Mood/affect normal, Behavior normal, Normal thought content Abdomen: Atraumatic, Soft, No guarding, No rebound, No distention Tenderness/Guarding/Rebound: Positive: Tender LLQ... (Mild), Tender flank L Interpretation & Diagnostics Lab Results Interpretation Result Diagram: 07/14/16 1630 07/14/16 1630 Test 07/14/16 16:10 07/14/16 16:30 07/14/16 17:01 Urine Color Yellow (YELLOW) Urine Appearance Clear (CLEAR,HAZY) Urine pH 7.5 (5.0-8.0) Urine Specific [place] 1.010 (1.003-1.035) Urine Protein Negativemg/dL (NEG,TRACE) Urine Glucose (UA) Negativemg/dL (NEGATIVE) Urine Ketones Negativemg/dL (NEGATIVE) Urine Occult Blood Small (NEGATIVE) Urine Nitrite Negative (NEGATIVE) Urine Bilirubin Negative (NEGATIVE) Urine Urobilinogen Normalmg/dL (NORMAL) Urine Leukocyte Esterase Negative (NEGATIVE) Urine RBC 3-10/hpf (0-2) Urine WBC 0-5/hpf (0-5) Urine Epithelial Cells Moderate/hpf (NONE-MOD) Urine Crystals None seen (NONE SEEN) Urine Bacteria Few/hpf (NONE-FEW) Urine Hyaline Casts None/lpf (NONE) Urine Granular Casts None seen (NONE SEEN) Urine Waxy Casts None seen (NONE SEEN) Urine Red Blood Cell Casts None seen (NONE SEEN) Urine White Blood Cell Casts None seen (NONE SEEN) Urine Mucus None seen (None Seen) Urine Trichomonas None seen (NONE SEEN) Urine Yeast None (NONE SEEN) Urinalysis Comment None Urine Culture Reflexed Not indicated Hold Urine Received (Received) White Blood Count 7.8th/mm3 (3.8-10.1) Red Blood Count 4.74mil/mm3 (3.90-5.20) Hemoglobin 14.0g/dL (12.0-15.6) Hematocrit 41.4% (35.0-46.0) Mean Corpuscular Volume 87.3fL (81-100) Mean Corpuscular Hemoglobin 29.5pg (27.0-35.0) Mean Corpuscular Hemoglobin Concent 33.8% (32.0-37.0) Red Cell Distribution Width 12.8% (12.3-15.4) Platelet Count 290bil/L (150-400) Neutrophils (%) (Auto) 62.4% (40-74) Lymphocytes (%) (Auto) 28.0% (14-46) Monocytes (%) (Auto) 8.9% (4-12) Eosinophils (%) (Auto) 0.1% (0-5) Basophils (%) (Auto) 0.3% (0-3) Sodium Level 135mEq/L (134-144) Potassium Level 3.6mEq/L (3.5-5.2) Chloride Level 96mEq/L (97-108) Carbon Dioxide Level 23mmol/L (18-29) Blood Urea Nitrogen 16mg/dL (6-20) Creatinine 0.78mg/dL (0.57-1.00) Estimat Glomerular Filtration Rate 118mL/min (>59) Glucose Level 97mg/dL (60-99) Calcium Level 9.6mg/dL (8.5-10.1) Total Bilirubin 0.2mg/dL (0.0-1.2) Aspartate Amino Transf (AST/SGOT) 22U/L (0-50) Alanine Aminotransferase (ALT/SGPT) 34U/L (0-32) Alkaline Phosphatase 106U/L (25-150) Total Protein 7.7g/dL (6.4-8.4) Albumin 4.3g/dL (3.4-5.0) Lipase 32U/L (13-60) Hold Vu Top Tube Received (Received) Lab values outside NL range: no clinical significance. Urinalysis Interpretation Positive blood CT Abd / Pelvis Interpretation IMPRESSION: No urolithiasis. No evidence of urinary obstruction. Normal appendix. No acute abnormality seen. Dictated by: Venkat Stockton M.D. on 07/14/2016 at 17:21 Interpretation / Wet Read by: Interpret - Radiologist Re-Eval/Medical Decision Med Decision/Clinical Course In summary, this is a 36 year old female with history of kidney stones who presents to ED with left flank pain and urine positive for blood. CT-KUB revealed no urolithiasis. No evidence of urinary obstruction. No acute abnormality seen. Patient is hemodynamically stable and will be discharged home with instructions to follow up with PCP and return to ED if symptoms worsen. Counseled Regarding: Diagnosis, Lab results, Need for follow-up, When/why to return to ED Discharge & Departure Shift Change Sign-Out Response to Therapy: Improved Departure Notes Primary Impression: Fatigue Fatigue type: due to excessive exertion Encounter type: initial encounter Qualified Code: T73.3XXA - Exhaustion due to excessive exertion, initial encounter Additional Impression: Lt flank pain Disposition: Home Discharge Condition Condition: Stable Additional Instructions: Thank you for seeking care at emergency room today. Finding trace of blood in your urine we were concerned about kidney stone. Fortunately, CT showed no evidence of kidney stones or other abnormalities. It is still not clear to us why you feel fatigued and nauseated. We would recommend to follow up with your PCP for further workup of hematuria and fatigue. We are sending you home with prescription for Tylenol and Zofran. We are also giving you a prescription for Cyclobenzaprine, a muscle relaxer. Please take as needed. Please return to emergency room if you develop new symptoms or if your symptoms worsen. Thank you for letting us partake in your care today. Referrals: [facility] (PCP) EDSupervising Provider for APC: Giacomo Montes MD Attending Statement I discussed patient with resident and evaluated the patient independently and agree with plan as above. In brief 36-year-old female with comfort care past medical history including CVA and PA presenting complaining of low back pain times several days. She has no red flag symptoms. She has normal neurological exam. She has no incontinence, weakness numbness tingling. Her back is diffusely tender in the left lower with no midline tenderness. She reports this is the pain therefore likely musculoskeletal etiology. Her urine and labs are stable unremarkable. Vital signs stable. Patient will be given Flexeril to use as needed for muscle spasms. Tylenol as needed for pain. Return precautions given. Giacomo Montes MD July 14, 2016 16:24 Kirsten Null DO July 14, 2016 17:37
[2016-07-14 16:48] LABS: BASOPHILS % (AUTO) 0.3 % (0-3); EOSINOPHILS % (AUTO) 0.1 % (0-5); MONOCYTES % (AUTO) 8.9 % (4-12); Mean Corpuscular Hemoglobin 29.5 pg (27.0-35.0); Mean Corpuscular Volume 87.3 fL (81-100); NEUTROPHILS % (AUTO) 62.4 % (40-74); Platelet Count 290 bil/L (150-400)
[2016-07-14 16:51] VITALS: BP_SYST 122; BP_SYST 129; BP_SYST 136; BP_DIAS 85; BP_DIAS 86; BP_DIAS 89; PULSE 108; PULSE 87; PULSE 90
--- NOTE | 2016-07-14 17:27 | DRSVH ---
PROCEDURE: CT KUB ([id number]) INDICATIONS: L flank pain, h/o kidney stones TECHNIQUE: Noncontrast 5 mm thick sections acquired from the diaphragms to the symphysis. 5 mm thick coronal an d sagittal reformats were then performed. For radiation dose reduction, the following was used: aut omated exposure control, adjustment of mA and/or kV according to patient size. COMPARISON: None. FINDINGS: Image quality: Excellent. Lung bases: Lung bases are clear. Heart size is normal. Urinary system: Both kidneys are normal in size. No kidney stones. No hydronephrosis or perinephri c fat stranding. Both ureters appear non-dilated throughout their expected courses. Bladder wall th ickness is normal; no calcified bladder stones. Other solid organs: Liver and spleen are normal in size. Gallbladder is not seen and may be decompr essed versus surgically absent.. Pancreas is normal in contours. No adrenal nodules. Peritoneum and bowel: Unenhanced bowel loops demonstrate normal wall thickness and caliber. No free fluid or air. Normal appendix. Rectal grossly unremarkable. Nodes and vessels: No retroperitoneal or mesenteric adenopathy by size criteria. Aorta and inferior vena cava are normal in caliber. Abdominal wall: No ventral hernias. Pelvis: No free pelvic fluid. No inguinal hernias or adenopathy. Bones: No suspicious bony lesions. Bilateral L5 pars defects No vertebral body compression fractures . IMPRESSION: No urolithiasis. No evidence of urinary obstruction. Normal appendix. No acute abnormality seen. Dictated by: Venkat Stockton M.D. on 07/14/2016 at 17:21 Approved by: Venkat Stockton M.D. on 07/14/2016 at 17:26
[2016-07-14 17:44] LABS: APPEARANCE,URINE CLEAR (CLEAR,HAZY); COLOR,URINE YELLOW (YELLOW); OCCULT BLOOD,URINE SMALL (NEGATIVE); PH,URINE 7.5 (5.0-8.0); UROBILINOGEN,URINE NORMAL (NORMAL)
[2016-07-14] MEDS ORDERED: ACET325T51 PO (18:12)
[2016-07-14] MEDS ORDERED: ONDA4TAB6 PO (18:12)
[2016-07-14] MEDS ORDERED: CYCL5TAB PO (18:13)
[2016-07-14 18:25] VITALS: BP 118/82; PULSE 86; RESP 16; O2SAT 97
== END 2016-07-14 18:33 | disposition home or self-care (01) ==
LOC: SED 15:37
DX: T73.3XXA Exhaustion due to excessive exertion, initial encounter (principal); R10.32 Left lower quadrant pain; X58.XXXA Exposure to other specified factors, initial encounter; Y93.9 Activity, unspecified; Y92.9 Unspecified place or not applicable; Y99.9 Unspecified external cause status; I25.10 Atherosclerotic heart disease of native coronary artery without angina pectoris; J45.909 Unspecified asthma, uncomplicated; K21.9 Gastro-esophageal reflux disease without esophagitis; Z86.73 Personal history of transient ischemic attack (TIA), and cerebral infarction without residual deficits; Z86.39 Personal history of other endocrine, nutritional and metabolic disease; Z88.1 Allergy status to other antibiotic agents; Z79.82 Long term (current) use of aspirin; Z87.891 Personal history of nicotine dependence

== ENCOUNTER 2016-08-16 19:02 | Emergency (ER) | payer OTHER ==
[~2016-08-16] VITALS: Ht 167.6 cm; Wt 260.0 kg
[~2016-08-16 19:02] MED LIST changes: +ACET325T51 PO; +CYCL5TAB PO; +ONDA4TAB6 PO
[2016-08-16 19:07] VITALS: BP 159/96; PULSE 81; RESP 16; O2SAT 100
--- NOTE | 2016-08-16 19:49 | ED.REPORT ---
HPI-General Illness Date of Service Aug 16, 2016 ED Provider: Harris Díaz DO A 36 year old female with a history of anxiety, CVA in 01/2016 and Grave's disease is referred to the ED from Urgent Care complaining of back pain. The pt noticed this pain two days ago in addition to neck pain, left arm pain and fatigue. The pain is exacerbated by shrugging and turning her neck and is worse on the left side. She denies abnormal numbness or weakness. The pt has arranged a follow up appointment with her primary care physician. Nursing Notes Stated Complaint: LEFT SIDE NECK PAIN Chief Complaint: Chest Pain-Non Cardiac Nature Nursing Notes Reviewed: Yes Allergies: Coded Allergies: amoxicillin (Verified Allergy, Unknown, 04/04/16) Scheduled Aspirin (Aspirin) 81 Mg Tablet 81 MG PO DAILY Methimazole (Methimazole) 10 Mg Tablet 30 MG PO DAILY Metoprolol Succinate ER (Metoprolol Succinate ER) 25 Mg Tab.er.24h 25 MG PO DAILY Propranolol HCl (Propranolol HCl) 10 Mg Tablet 10 MG PO TID Scheduled PRN Acetaminophen (Acetaminophen) 325 Mg Tablet 325 MG PO Q4H PRN PRN For Fever Cyclobenzaprine (Cyclobenzaprine) 5 Mg Tablet 5 MG PO HS PRN PRN Spasm Cyclobenzaprine (Cyclobenzaprine) 5 Mg Tablet 5 MG PO TID PRN PRN Spasm Ondansetron (Zofran) 4 Mg Tablet 4 MG PO Q4H PRN PRN For Nausea General Time Seen by MD: 19:48 Chief Complaint Back pain Hx Obtained From: Patient Arrived By: Walk-in Sudden in Onset?: No Onset Occurred: 2 days ago Recent Healthcare: Recent doctor visit, Recent hospitalization Similar Sx Previous: No Past Medical History Past Medical History - 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, s/p tPA (01/20/2016) - Inferoposterior myocardial infarction 04/03/2016 - Minimal coronary artery disease (per heart catheterization on 04/03/2016, no intervention) - Grave's disease - Hyperthyroidism - Anxiety Reports: Asthma, GERD Reports: Migraines Past Surgical History L knee arthoscopy cardiac catheterization on Apr 03 2016 Reports: Cholecystectomy, Tonsillectomy Smoking History Former Smoker Social History Other Social History: Good social support, , Lives with children, Local resident Ambulatory Status Independent Review of Systems Full Review of Systems Constitutional: Reports: Fatigue Respiratory: Denies: Non-productive cough, Shortness of breath Cardiovascular: Denies: Chest pain GI: Denies: Abdominal pain, Nausea, Vomiting Musculoskeletal: Reports: Back pain, Extremity pain, Neck pain Skin: Denies Rash Neurologic: Denies: Numbness, Weakness Complete sys rev & neg: except as marked. Physical Exam Vital Signs Vital Signs Date Time Temp Pulse Resp B/P Pulse Ox O2 Delivery O2 Flow Rate FiO2 08/16/16 20:34 37.1 80 16 150/88 99 Room Air 08/16/16 19:07 37. 81 16 159/96 100 Room Air Initial VS: Reviewed General/Constitutional: Awake, Alert Head / Eyes: Atraumatic, Normocephalic, PERRL, EOMI ENT: Atraumatic, Airway patent, Mucous membranes moist Neck: Atraumatic, Supple, Full range of motion Respiratory / Chest: Atraumatic, Breath sounds NL, Breath sounds = bilat, No respiratory distress Cardiovascular: Heart rate NL, Regular rhythm, Heart sounds NL Abdomen: Atraumatic, Soft, Non-tender Back: Full range of motion tenderness along distribution of the trapezius muscle no midline spinal tenderness Upper Extremities Upper Extremity / MS: Atraumatic, Full range of motion, Neurologic intact, Vascular intact Lower Extremity / Pelvis / MS: Atraumatic, Full range of motion Skin: Atraumatic, Color NL, No rash, Warm, Dry Neurologic: Oriented X3, Speech NL, No motor deficits, No sensory deficits Psychiatric: Affect NL, Mood NL Re-Eval/Medical Decision Med Decision/Clinical Course Left trapezius pain without particular high-risk features, she reports cyclobenzaprine has worked for this in the past. Will prescribe some cyclobenzaprine and have her follow-up as planned with her primary care. Discussion was had regarding what high-risk features are and signs and symptoms with which to return to the ER. Source of Hx: Old records Time of Eval: 19:48 Re-Evaluation/Progress Note: Pt informed of the diagnosis and plan for discharge during the initial interview. The pt understands and agrees with the plan. All questions are addressed at this time. Counseled Regarding: Diagnosis, Lab results, Need for follow-up, When/why to return to ED Discharge & Departure Primary Impression: Trapezius strain Encounter type: initial encounter Laterality: left Qualified Code: S46.812A - Strain of other muscles, fascia and tendons at shoulder and upper arm level, left arm, initial encounter Disposition: Home Discharge Condition All VS Reviewed: Yes Condition: Stable Additional Instructions: Take Tylenol and cyclobenzaprine as needed. Follow-up with your primary care doctor. Return to the ER if you develop numbness or weakness in your extremities, numbness or weakness going down into your legs, loss of bowel or bladder function, high fever, severe lethargy, or other concerns. Referrals: [facility] (PCP) [place] Attestation Portions of this note were transcribed by Starla Farrell. I, Dr. Díaz personally performed the history, physical exam and medical decision-making; I reviewed and confirmed the accuracy of the information in the transcribed note. Signed by: Mark Oliva, 08/16/2016 and 2034. copies to: [facility] Harris Díaz DO Aug 16, 2016 19:49 STARLA FARRELL Aug 16, 2016 20:03
[2016-08-16] MEDS ORDERED: CYCL5TAB PO (20:14)
[2016-08-16 20:34] VITALS: BP 150/88; PULSE 80; RESP 16; O2SAT 99
== END 2016-08-16 20:34 | disposition home or self-care (01) ==
LOC: SED 19:02
DX: S46.812A Strain of other muscles, fascia and tendons at shoulder and upper arm level, left arm, initial encounter (principal); X50.9XXA Other and unspecified overexertion or strenuous movements or postures, initial encounter; Y93.89 Activity, other specified; Y92.89 Other specified places as the place of occurrence of the external cause; Y99.8 Other external cause status; M54.2 Cervicalgia; R53.83 Other fatigue; I25.10 Atherosclerotic heart disease of native coronary artery without angina pectoris; I25.2 Old myocardial infarction; J45.909 Unspecified asthma, uncomplicated; K21.9 Gastro-esophageal reflux disease without esophagitis; E05.00 Thyrotoxicosis with diffuse goiter without thyrotoxic crisis or storm; F41.9 Anxiety disorder, unspecified; Z86.73 Personal history of transient ischemic attack (TIA), and cerebral infarction without residual deficits; Z95.5 Presence of coronary angioplasty implant and graft; Z79.82 Long term (current) use of aspirin; Z87.891 Personal history of nicotine dependence; Z88.1 Allergy status to other antibiotic agents

== ENCOUNTER 2016-08-21 20:21 | Emergency (ER) | payer OTHER ==
[~2016-08-21] VITALS: Ht 167.6 cm; Wt 118.2 kg
[2016-08-21 20:35] VITALS: BP 164/94; PULSE 70; RESP 18; O2SAT 100
--- NOTE | 2016-08-21 21:23 | ED.REPORT ---
HPI-Headache Date of Service Aug 21, 2016 ED Provider: Regulo Cm MD The patient is a 36 year old female with a medical history including CVA (2015), CAD, asthma, Grave's disease, and anxiety who presents to the ED with an episode of vision change onset 19:30. The patient reports seeing "ripples" in her right eye, "as though she was underwater," as well as a blind spot in the temporal aspect of her right visual field. The patient also reports left hand paresthesias. Her symptoms resolved after approximately twenty minutes. The patient denies focal weakness, speech change, or other symptoms. Her symptoms are milder than those from her previous CVA. Nursing Notes Stated Complaint: HEADACHE/VISION CHANGES/PREV STROKE Chief Complaint: Neuro Symptoms/ Deficits Nursing Notes Reviewed: Yes Allergies: Coded Allergies: amoxicillin (Verified Allergy, Unknown, 04/04/16) Scheduled Aspirin (Aspirin) 81 Mg Tablet 81 MG PO DAILY Methimazole (Methimazole) 10 Mg Tablet 30 MG PO DAILY Metoprolol Succinate ER (Metoprolol Succinate ER) 25 Mg Tab.er.24h 25 MG PO DAILY Propranolol HCl (Propranolol HCl) 10 Mg Tablet 10 MG PO TID Scheduled PRN Acetaminophen (Acetaminophen) 325 Mg Tablet 325 MG PO Q4H PRN PRN For Fever Cyclobenzaprine (Cyclobenzaprine) 5 Mg Tablet 5 MG PO HS PRN PRN Spasm Cyclobenzaprine (Cyclobenzaprine) 5 Mg Tablet 5 MG PO TID PRN PRN Spasm Ondansetron (Zofran) 4 Mg Tablet 4 MG PO Q4H PRN PRN For Nausea General Time Seen by MD: 21:20 Chief Complaint Other (Vision Change) Hx Obtained From: Patient Arrived By: Walk-in Sudden in Onset?: Yes Onset Occurred: 1 - 4 hours ago Symptom Duration: Since onset Severity: Current: No pain currently Severity: Maximum: No pain Recent Healthcare: No recent doctor visit Risk-Headache NIH Stroke Scale Level of Consciousness: Alert and responsive (0) Ask Month & Age: Both questions right (0) Open/Close Eyes/Hand Inventory Analyst: Performs both tasks (0) Horizontal EO Movements: None (0) Visual No: No visual loss (0) Facial Palsy: Normal symmetry (0) Right Arm Motor Drift (10s): No drift 10 sec (0) Left Arm Motor Drift (10s): No drift 10 sec (0) Right Leg Motor Drift (5s): No drift 5 sec (0) Left Leg Motor Drift (5s): No drift 5 sec (0) Limb Ataxia FNF/Heel-Sanchez: No ataxia (0) Sensation (Arms/Legs/Face): No sensory loss (0) Language Aphasia: No aphasia, normal (0) Dysarthria: No dysarthria, normal (0) Extinction/Inattention: No exctinct/inattent (0) NIHSS Score: 0 Time NIHSS Performed: 21:30 Date NIHSS Performed: Aug 22, 2016 Past Medical History Past Medical History - 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, s/p tPA (01/20/2016) - Coronary artery spasm 04/03/2016 - Minimal coronary artery disease (per heart catheterization on 04/03/2016, no intervention) - Grave's disease - Hyperthyroidism - Anxiety Reports: Asthma, GERD Reports: Migraines Past Surgical History L knee arthoscopy cardiac catheterization on Apr 03 2016 Reports: Cholecystectomy, Tonsillectomy Smoking History Former Smoker Social History Other Social History: Good social support, , Lives with children, Local resident Ambulatory Status Independent Review of Systems Review of Systems Note: + Left hand paresthesias Constitutional: Denies: Fever GI: Denies: Diarrhea, Vomiting Neurologic: Reports: Vision change, Denies: Focal weakness, Slurred speech, Unable to speak Complete sys rev & neg: except as marked. Respiratory: Denies: Non-productive cough, Shortness of breath Physical Exam Initial Vital Signs Vital Signs (First) Date Time Temp Pulse Resp B/P Pulse Ox O2 Delivery O2 Flow Rate FiO2 08/21/16 20:35 37.0 70 18 164/94 100 Room Air Initial VS: Reviewed, Vital signs abnormal ENT: Conjunctiva normal, No scleral icterus Respiratory: Breath sounds normal, Clear to auscultation, No respiratory distress Cardiovascular: Regular rate & rhythm, Heart sounds normal Skin: Warm, Dry, No cyanosis Psychiatric: Mood/affect normal, Behavior normal, Normal thought content General/Constitutional: Awake, Alert, No acute distress Head / Eyes: Atraumatic, Normocephalic, PERRL, EOMI Neck: Supple, Full range of motion Neurologic: Oriented X3, Speech NL, No motor deficits, No sensory deficits, CN II - XII intact Interpretation & Diagnostics CT ANGIOGRAM HEAD AND NECK: CONCLUSION: Normal CT angiogram of the head. CONCLUSION: Normal CT angiogram of the neck. Report transmitted to the ED by radiologist Deidre Vivar M.D. at 08/22/2016 - 12:01:39 AM PDT Lab Results Interpretation Result Diagram: 08/21/16213408/21/[id number] Test 08/21/16 21:35 08/21/16 21:55 White Blood Count 9.5th/mm3 (3.8-10.1) Red Blood Count 4.43mil/mm3 (3.90-5.20) Hemoglobin 13.4g/dL (12.0-15.6) Hematocrit 38.9% (35.0-46.0) Mean Corpuscular Volume 87.8fL (81-100) Mean Corpuscular Hemoglobin 30.2pg (27.0-35.0) Mean Corpuscular Hemoglobin Concent 34.4% (32.0-37.0) Red Cell Distribution Width 13.4% (12.3-15.4) Platelet Count 294bil/L (150-400) Neutrophils (%) (Auto) 68.0% (40-74) Lymphocytes (%) (Auto) 25.7% (14-46) Monocytes (%) (Auto) 5.7% (4-12) Eosinophils (%) (Auto) 0.3% (0-5) Basophils (%) (Auto) 0.2% (0-3) Prothrombin Time 9.9sec (8.1-12.5) Prothromb Time International Ratio 0.93ratio Activated Partial Thromboplast Time 27.9sec (22.8-33.0) Sodium Level 136mEq/L (134-144) Potassium Level 3.5mEq/L (3.5-5.2) Chloride Level 100mEq/L (97-108) Carbon Dioxide Level 21mmol/L (18-29) Blood Urea Nitrogen 12mg/dL (6-20) Creatinine 0.92mg/dL (0.57-1.00) Estimat Glomerular Filtration Rate 98mL/min (>59) Glucose Level 111mg/dL (60-99) Calcium Level 9.5mg/dL (8.5-10.1) Total Bilirubin 0.3mg/dL (0.0-1.2) Aspartate Amino Transf (AST/SGOT) 19U/L (0-50) Alanine Aminotransferase (ALT/SGPT) 24U/L (0-32) Alkaline Phosphatase 90U/L (25-150) Troponin T 0.010ug/L (0.0-0.011) Total Protein 7.3g/dL (6.4-8.4) Albumin 4.1g/dL (3.4-5.0) Hold Vu Top Tube Received (Received) Urine Color Straw (YELLOW) Urine Appearance Hazy (CLEAR,HAZY) Urine pH 5.5 (5.0-8.0) Urine Specific [place] 1.005 (1.003-1.035) Urine Protein Negativemg/dL (NEG,TRACE) Urine Glucose (UA) Negativemg/dL (NEGATIVE) Urine Ketones Negativemg/dL (NEGATIVE) Urine Occult Blood Small (NEGATIVE) Urine Nitrite Negative (NEGATIVE) Urine Bilirubin Negative (NEGATIVE) Urine Urobilinogen Normalmg/dL (NORMAL) Urine Leukocyte Esterase Negative (NEGATIVE) Urine RBC 3-10/hpf (0-2) Urine WBC 0-5/hpf (0-5) Urine Epithelial Cells Moderate/hpf (NONE-MOD) Urine Crystals None seen (NONE SEEN) Urine Bacteria Few/hpf (NONE-FEW) Urine Hyaline Casts None/lpf (NONE) Urine Granular Casts None seen (NONE SEEN) Urine Waxy Casts None seen (NONE SEEN) Urine Red Blood Cell Casts None seen (NONE SEEN) Urine White Blood Cell Casts None seen (NONE SEEN) Urine Mucus None seen (None Seen) Urine Trichomonas None seen (NONE SEEN) Urine Yeast None (NONE SEEN) Urinalysis Comment None Urine Culture Reflexed Not indicated Urine Opiates Screen Negative Urine Methadone Screen Negative Urine Barbiturates Screen Negative Urine Amphetamines Screen Negative Urine Benzodiazepines Screen Negative Urine Cocaine Metabolite Screen Negative Urine Cannabinoids Screen Negative Lab values outside NL range: no clinical significance. CT Head Interpretation IMPRESSION: No acute intracranial disease process. Dictated by: Clemencia Borges MD, PhD on 08/21/2016 at 21:20 Study: Head CT no contrast Interpretation / Wet Read by: Interpret - Radiologist Re-Eval/Medical Decision Med Decision/Clinical Course 36-year-old female with a history of CVA and previous coronary artery spasm presents with nearly an hour of right temporal visual field cut and left hand numbness, starting 2 hours prior to arrival. Her symptoms completely resolved prior to arrival. Initial CT scan was negative. Laboratory was negative. CT angiogram of the brain and neck showed no abnormalities. The symptoms do not appear to be arterial/CVA in origin, but most likely represents a migraine. She will be discharged home to follow up with her primary doctor. Return or call if she has further problems. Source of Hx: Old records Re-Evaluation/Progress #1: Time of Eval: 21:51 )( Patient Status: Condition improved Re-Evaluation/Progress Note: Discussed with patient plan for CT angio head and neck. She agrees with plan for care and all questions were addressed. Re-Evaluation/Progress #2: Time of Eval: 00:15 )( Patient Status: Condition improved Re-Evaluation/Progress Note: Discussed with patient lab and CT results, diagnosis, and plan for discharge. Follow-up and return to the ER instructions given. Patient agrees with plan for care and all questions were addressed. The patient has an appointment with her PCP this week. Counseled Regarding: Diagnosis, Lab results, Need for follow-up, When/why to return to ED Discharge & Departure Impression: Primary Impression: Migraine Migraine type: without aura Status migrainosus presence: without status migrainosus Intractability: not intractable Qualified Code: G43.009 - Migraine without aura, not intractable, without status migrainosus Disposition: Home Discharge Condition All VS Reviewed: Yes Condition: Improved Patient Instructions: Migraine Headache (ED) Additional Instructions: Your CT scans and labs are all normal. Your symptoms at this time do not appear to be from a stroke/TIA. I suspect that this is a migraine variant. Continue your present medication regimen and follow up as planned. If you have recurrent symptoms, return to the emergency room. You can call Dr. Cadet or myself at [phone] between the hours of 6 PM and 6 AM for the next couple nights if you have any questions or concerns. Referrals: [facility] (PCP) Scribe Attestation Portions of this note were transcribed by Dariana Roche. I, Dr. Cm, personally performed the history, physical exam, and medical decision-making; I reviewed and confirmed the accuracy of the information in the transcribed note. Signed by: Mark Walker, 08/22/2016, 02:50 copies to: [facility] Regulo Cm MD Aug 21, 2016 21:23 DARIANA ROCHE Aug 21, 2016 21:30
--- NOTE | 2016-08-21 21:23 | DRSVH ---
PROCEDURE: CT BRAIN WITHOUT CONTRAST ([id number]) INDICATIONS: headache, visual changes post CVA TECHNIQUE: Noncontrast 4.5 mm thick angled axial sections acquired from the foramen magnum to the vertex, with c oronal reformats. COMPARISON: [facility], CT, CT BRAIN WO CON, 01/20/2016, 1:53. FINDINGS: Image quality: Excellent. CSF spaces: Basal cisterns are patent. No extra-axial fluid collections. Ventricles are normal in size and shape. Brain: No midline shift. No intracranial masses or hemorrhage. Garcia-white matter interface is norm al. Skull and face: Calvarium and visualized facial bones are intact, without suspicious lesions. Sinuses: Visualized sinuses and mastoids are clear. IMPRESSION: No acute intracranial disease process. Dictated by: Clemencia Borges MD, PhD on 08/21/2016 at 21:20 Approved by: Clemencia Borges MD, PhD on 08/21/2016 at 21:21
[2016-08-21 21:42] LABS: BASOPHILS % (AUTO) 0.2 % (0-3); EOSINOPHILS % (AUTO) 0.3 % (0-5); MONOCYTES % (AUTO) 5.7 % (4-12); Mean Corpuscular Hemoglobin 30.2 pg (27.0-35.0); Mean Corpuscular Volume 87.8 fL (81-100); Platelet Count 294 bil/L (150-400)
[2016-08-21 22:00] LABS: INR 0.93 ratio
[2016-08-21 22:11] LABS: TROPONIN T 0.01 ug/L (0.0-0.011)
[2016-08-21 22:12] LABS: APPEARANCE,URINE HAZY (CLEAR,HAZY); COLOR,URINE STRAW (YELLOW); OCCULT BLOOD,URINE SMALL (NEGATIVE); PH,URINE 5.5 (5.0-8.0); UROBILINOGEN,URINE NORMAL (NORMAL)
[2016-08-21 23:31] VITALS: BP 119/61; PULSE 82; RESP 16; O2SAT 98
[2016-08-22 00:52] VITALS: BP 122/66; PULSE 80; RESP 16; O2SAT 99
--- NOTE | 2016-08-22 07:23 | DRSVH ---
PROCEDURE: CT ANGIO BRAIN NECK TPA INDICATIONS: STAT READ - CALL ED PROVIDER W/RESULTS TECHNIQUE: Pre-contrast 4.5 mm thick sections acquired from the foramen magnum to the vertex. After the adminis tration of intravenous contrast, 1 mm thick sections acquired from the aortic arch through the [place] of [place]. Post-contrast 4.5 mm thick sections then re-acquired from the foramen magnum to the vert ex. 3-dimensional nydssrv-samfpmyjp-bnyurwffar (MIP) and/or volume rendering reformats were acquired of the central intracranial vasculature and neck separately. For radiation dose reduction, the foll owing was used: automated exposure control, adjustment of mA and/or kV according to patient size. COMPARISON: [facility], CT, CT BRAIN WO CON, 08/21/2016, 21:00. FINDINGS: Image quality: Excellent. BRAIN: CSF spaces: Ventricles are normal in size and shape. Basal cisterns are patent. No extra-axial flu id collections. Brain: No midline shift. No intracranial bleeds or masses. Garcia-white matter interface appears int act. Skull and face: Calvarium and facial bones appear intact, without suspicious lesions. Orbits appear normal. Sinuses: Sinuses and mastoids are clear. HEAD CT ANGIOGRAPHY: Anterior circulation: Intracranial internal carotid arteries are normal in size and flow. The flow within the paired anterior cerebral arteries is normal and symmetric. The flow within the middle cer ebral arteries is normal and symmetric. The anterior communicating artery is seen. No aneurysms are seen. Posterior circulation: Visualized portions of the vertebral arteries demonstrate normal caliber, and join to form a normal appearing basilar artery. Flow within the posterior cerebral arteries is norm al and symmetric. No aneurysms are seen. NECK CT ANGIOGRAPHY: Carotid system: The great vessels demonstrate a conventional anatomy as they arise from the aortic a h. The origins of the common carotid arteries appear patent. The common carotid arteries demonstr ate normal caliber and courses. The bifurcation regions are both widely patent. The internal caroti d arteries demonstrate normal calibers and courses. Posterior circulation: The origins of the vertebral arteries both appear widely patent. The more ann perior extracranial portions of both vertebral arteries also demonstrate normal courses and calibers. They join to form a normal appearing basilar artery. Soft tissues: Visualized neck soft tissues demonstrate no suspicious abnormalities. Bones: No suspicious bony lesions. Visualized cervical spine appears normally aligned. No CT evidence of acute intracranial pathology. Normal head CT normal IMPRESSION: 1. Normal head and neck angiogram. 2. There are no discrepancies with the pulmonary report. Dictated by: Zac Echavarria M.D. on 08/22/2016 at 7:05 Approved by: Zac Echavarria M.D. on 08/22/2016 at 7:15
== END 2016-08-22 00:31 | disposition home or self-care (01) ==
LOC: SED 20:21
DX: G43.009 Migraine without aura, not intractable, without status migrainosus (principal); K21.9 Gastro-esophageal reflux disease without esophagitis; Z86.73 Personal history of transient ischemic attack (TIA), and cerebral infarction without residual deficits; Z87.891 Personal history of nicotine dependence; Z79.82 Long term (current) use of aspirin; Z79.899 Other long term (current) drug therapy; Z88.1 Allergy status to other antibiotic agents
CPT/HCPCS: 36415; 70450; 70496; 70498; 80053; 81000; 84484; 85025; 85610; 85730; 99285; G0480; Q9967